=== PATIENT | female | born 1985 | race Caucasian/White ===

== ENCOUNTER 2022-07-09 14:11 | Emergency (ER) | payer MEDICAID ==
[~2022-07-09] VITALS: Ht 149.9 cm; Wt 70.3 kg
[~2022-07-09 14:11] MED LIST: CLIN300C2 PO; IBUP-2213 PO; SULF-954 PO
[2022-07-09 14:15] VITALS: BP 103/62
--- NOTE | 2022-07-09 14:24 | NUR ---
PT AMBULATED TO [facility]. SWABBED FOR COVID AND FLU
--- NOTE | 2022-07-09 14:40 | NUR ---
37/F WALKED IN C/O FEVER, COUGH, AND BODY ACHE ONSET 2DAYS. REPORTS TAKING TYLENOL TODAY IN THE MORNING WITH RELIEF. AFEBRILE AT TRIAGE. AAO4, AMBULATORY, ON ROOM AIR, NO ACUTE DISTRESS NOTED PMH: DENIES
[2022-07-09] MEDS ORDERED: DEXAMETHASONE 4 MG/ML VIAL PO ONE (14:55)
[2022-07-09] MEDS ORDERED: ALBUTEROL SULFATE/IPRATROPIU 3 ML SOL IH ONE ×2 (14:55→16:01)
[2022-07-09] MEDS ORDERED: PRED20TA5 PO (15:46)
[2022-07-09] MEDS ORDERED: ALBU0.0912 INH (15:46)
[2022-07-09] MEDS ORDERED: BENZ200C4 PO (15:47)
--- NOTE | 2022-07-09 16:13 | NUR ---
Patient discharged with v/s stable. Written and verbal after care instructions given and explained. Patient alert, oriented and verbalized understanding of instructions. Ambulatory with steady gait. All questions addressed prior to discharge. ID band removed. Patient advised to follow up with PMD. Rx of PREDNISONE, ALBUTEROL AND BENZONATATE given. Patient educated on indication of medication including possible reaction and side effects. Opportunity to ask questions provided and answered.
--- NOTE | 2022-07-09 16:15 | NUR ---
Note undone in EDM - 07/09/22 at 1620 by MNCORBIN Patient discharged with v/s stable. Written and verbal after care instructions ABOUT LIVER CA given and explained. Patient alert, oriented and verbalized understanding of instructions. Ambulatory with steady gait. All questions addressed prior to discharge. ID band removed. Patient advised to follow up with PMD. Rx of OMPERAZOLE, TRAMADOL given. Patient educated on indication of medication including possible reaction and side effects. Opportunity to ask questions provided and answered.
== END 2022-07-09 16:13 | disposition home or self-care (01) ==
LOC: MED 14:11
DX: J06.9 Acute upper respiratory infection, unspecified (principal); Z20.822 Contact with and (suspected) exposure to COVID-19; J98.01 Acute bronchospasm; J11.1 Influenza due to unidentified influenza virus with other respiratory manifestations; Z79.899 Other long term (current) drug therapy
CPT/HCPCS: 71045; 87426; 87804; 99284; J1100

== ENCOUNTER 2022-08-16 03:08 | Emergency (ER) | payer MEDICAID ==
[~2022-08-16] VITALS: Ht 165.1 cm; Wt 81.6 kg
[~2022-08-16 03:08] MED LIST changes: +ALBU0.0912 INH; +BENZ200C4 PO; +PRED20TA5 PO
[2022-08-16 03:13] VITALS: BP 148/79
--- NOTE | 2022-08-16 03:16 | NUR ---
PT TAKEN TO BED 8
--- NOTE | 2022-08-16 03:19 | NUR ---
Dr. Yung at bedside
--- NOTE | 2022-08-16 03:25 | NUR ---
37 Y/O F presents with a cough and swelling in facial area with some angioedema. pt stated she had an allergic reaction but cant remember what she ate. pt is A&Ox4, skin intact, denies any blood thinners pain is 7/10. PMH-pt denies NKA
[2022-08-16] MEDS ORDERED: FAMOTIDINE 20 MG/2 ML VIAL IVP ONE (03:30)
[2022-08-16] MEDS ORDERED: NACL 0.9% 1,000 ML IV ONE (03:30)
[2022-08-16] MEDS ORDERED: methylPREDNISolone SS 125 MG in WATER STERILE 2 ML IV ONE (03:30)
[2022-08-16] MEDS ORDERED: diphenhydrAMINE 50 MG/ML VIAL IVP ONE (03:30)
[2022-08-16] MEDS ORDERED: WATER STERILE 10 ML MC ONE (03:47)
[2022-08-16] MEDS ORDERED: methylPREDNISolone SS 125 MG/2 ML VIAL ONE (03:48)
[2022-08-16] MEDS ORDERED: DIPH25TA53 PO (03:55)
[2022-08-16] MEDS ORDERED: EPIN1KIT31 IM (03:55)
[2022-08-16] MEDS ORDERED: FAMO-90 PO (03:55)
[2022-08-16] MEDS ORDERED: PRED20TA5 PO (03:55)
--- NOTE | 2022-08-16 04:24 | NUR ---
pt tolerated meds well, pt states throat pain is mild 5/10
--- NOTE | 2022-08-16 04:44 | NUR ---
Patient discharged with v/s stable. Written and verbal after care instructions given and explained. Patient alert, oriented and verbalized understanding of instructions. Ambulatory with steady gait. All questions addressed prior to discharge. ID band removed. Patient advised to follow up with PMD. Rx of benadryl, epipen, pepcid, deltasone given. Opportunity to ask questions provided and answered.
--- NOTE | 2022-08-16 05:03 | NUR ---
The patient's care was reviewed and supervised by Eusebia Zamora RN, RN.
== END 2022-08-16 04:44 | disposition home or self-care (01) ==
LOC: MED 03:08
DX: L50.0 Allergic urticaria (principal)
CPT/HCPCS: 96361; 96374; 96375; 99284; J1200; J2930; J3490; J7030